=== PATIENT | female | born 1980 | race Caucasian/White ===

== ENCOUNTER 2018-02-16 11:28 | Emergency (ER) | payer OTHER ==
[2018-02-16] MEDS ORDERED: KETOROLAC 30 MG/ML INJ ONE (12:19)
[2018-02-16] MEDS ORDERED: NA CHLORIDE 0.9% 1,000 ML ONE (12:19)
[2018-02-16] MEDS ORDERED: ONDANSETRON 4 MG/2 ML VIAL ONE (12:19)
[2018-02-16 12:23] LABS: Absolute Lymphocytes (CBC) 1.9 K/uL (0.7-4.9); Absolute Monocytes 0.7 K/uL (0.1-1.3); Absolute Neutrophil 4.6 K/uL (1.8-8.0); Basophils % 0.4 % (0-1.3); Eosinophils % 0.8 % (0-4.4); Hematocrit 37.8 % (36.0-45.0); Lymphocytes % 25.6 % (15.3-44.8); MCH 31.8 pg (27.0-35.0); MCV 90.2 fL (80-100); MPV 9.6 fL (7.6-11.3); Monocytes % 9.5 % (3.3-12.3); RBC Red Blood Cell Count 4.19 M/uL (3.86-4.86)
[2018-02-16 12:47] LABS: Urine Blood NEGATIVE (NEG); Urine Glucose NEGATIVE (NEG); Urine Protein NEGATIVE (NEG); Urine Specific Gravity 1.025 (1.005-1.030)
[2018-02-16 12:49] LABS: Urine RBC <5 /HPF (NONE SEEN)
[2018-02-16 12:50] LABS: Urine Amorphous Sediment 1+ /HPF (NONE SEEN); Urine Bacteria <20 /HPF (<20); Urine Culture Reflex Order NOT NEEDED; Urine Mucus 2+ /HPF (NONE SEEN)
[2018-02-16 12:52] LABS: ALT/SGPT 26 U/L (12-78); AST/SGOT 18 U/L (15-37); Albumin 3.7 g/dL (3.4-5.0); Alkaline Phosphatase 60 U/L (45-117); BUN Blood Urea Nitrogen 10 mg/dL (7-18); Bicarbonate 29 mmol/L (21-32); Bilirubin Direct < 0.1 mg/dL (0-0.2); Bilirubin Total 0.2 mg/dL (0.2-1.0); Glucose Level 93 mg/dL (74-106); Lipase 250 U/L (73-393); Potassium 3.8 mmol/L (3.5-5.1); Protein, Total 7.7 g/dL (6.4-8.2); Sodium Level 140 mmol/L (136-145)
--- NOTE | 2018-02-16 13:46 | RAD REPORT ---
EXAM DESCRIPTION: CT - Abdomen Pelvis W Contrast - 02/16/2018 1:07 pm COMPARISON: None. TECHNIQUE: Biphasic, helical CT imaging of the abdomen and pelvis was performed following 100 ml non -ionic IV contrast. Oral contrast was given. All CT scans are performed using dose optimization technique as appropriate and may include automated exposure control or mA/KV adjustment according to patient size. FINDINGS: No suspicious findings in the lung bases. No cardiomegaly or pericardial effusion. The liver, spleen, and pancreas show no suspicious findings. Gallbladder is only partially filled. Th ere are 2 large gallstones present occupying much of the gallbladder lumen. These are 2 centimeter in size. Additional smaller gallstones or sludge could be present and occult. No biliary tree dilatatio n. Symmetric renal function is seen with no hydronephrosis or suspicious renal mass. No pyelonephritis o r acute renal parenchymal process. Urinary bladder shows no suspicious finding. Normal size uterus shows no suspicious finding. Dilated veins are seen adjacent to the uterus. No thr ombosis. No gonadal vein abnormality. Hyperdense device near the left side of the uterus is probably a tubal occlusive device. There is a 2.2 centimeter right ovarian cyst. No fallopian tube dilatation. Distended but nondilated fluid-filled stomach noted. No gastric wall thickening or mass. No dilated s mall bowel loops. Patient does have quite a few small mesenteric lymph nodes present. The appendix is identified and normal. An acute colon process is not seen. No free air or pneumatosis. No focal inflammatory stranding seen. Small quantity of free fluid in t he cul-de-sac is within physiologic limits. No hernia, mass or bulky lymphadenopathy. No adrenal abn ormality. No suspicious bony findings. IMPRESSION: No obstruction, free air or surgically emergent finding. Multi stone cholelithiasis. No biliary tree or other acute finding seen. Check Small mesenteric lymph nodes. No appendicitis, dilated bowel loop or acute GI process seen. Nonspecif ic enteritis is still possible.
--- NOTE | 2018-02-16 14:09 | ER ---
Nurse's Notes [facility] Name: Marie Marques Age: 37 yrs Sex: Female : 1980 Arrival Date: 02/16/2018 Time: 11:37 Bed 13 Private MD: Micky Roman E Diagnosis: Other abdominal pain;Cholelithiasis;Nonspecific mesenteric lymphadenitis Presentation: 02/16 11:46 Presenting complaint: Patient states: upper abd pain X 2 days, diarrhea and cramping, iw vomited X 2 yesterday. Transition of care: patient was not received from another setting of care. Onset of symptoms was February 14, 2018. Risk Assessment: Do you want to hurt yourself or someone else? Patient reports no desire to harm self or others. Initial Sepsis Screen: Does the patient meet any 2 criteria? No. Patient's initial sepsis screen is negative. Does the patient have a suspected source of infection? No. Patient's initial sepsis screen is negative. Care prior to arrival: None. 11:46 Method Of Arrival: Ambulatory iw 11:46 Acuity: NIKOS 3 iw Triage Assessment: 11:50 General: Appears in no apparent distress. comfortable, Behavior is cooperative, hj appropriate for age, crying. Pain: Complains of pain in abdomen. EENT: No signs and/or symptoms were reported regarding the EENT system. Neuro: Level of Consciousness is awake, alert, obeys commands, Oriented to person, place, time, situation, Appropriate for age. Cardiovascular: Capillary refill < 3 seconds Patient's skin is warm and dry. Respiratory: Airway is patent Trachea Respiratory effort is even, unlabored, Respiratory pattern is regular, symmetrical. GI: Reports upper abdominal pain, cramping, diarrhea, nausea, vomiting. : No signs and/or symptoms were reported regarding the genitourinary system. Derm: No signs and/or symptoms reported regarding the dermatologic system. Musculoskeletal: No signs and/or symptoms reported regarding the musculoskeletal system. 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 - Social history:: Smoking status: Patient uses tobacco products, denies chronic smoking, but will smoke occasionally. - Ebola Screening: : Patient negative for fever greater than or equal to 101.5 degrees Fahrenheit, and additional compatible Ebola Virus Disease symptoms Patient denies exposure to infectious person Patient denies travel to an Ebola-affected area in the 21 days before illness onset No symptoms or risks identified at this time. Screenin:50 Abuse screen: Denies threats or abuse. Denies injuries from another. Nutritional hj screening: No deficits noted. Tuberculosis screening: No symptoms or risk factors identified. Fall Risk None identified. Assessment: 11:51 GI: Bowel sounds present X 4 quads. Abd is soft Abdomen is tender to palpation. hj Vital Signs: 11:49 BP 129 / 105; Pulse 87; Resp 16; Temp 97.8; Pulse Ox 97% on R/A; Weight 65.77 kg; iw Height 5 ft. 1 in. (154.94 cm); Pain 6/10; 13:58 BP 113 / 72; Pulse 82; Resp 17; Temp 98; Pulse Ox 98% on R/A; cc3 11:49 Body Mass Index 27.40 (65.77 kg, 154.94 cm) iw ED Course: 11:37 Patient arrived in ED. jb7 11:37 Micky Roman MD is Private Physician. jb7 11:47 Darrell Rashid MD is Attending Physician. ps1 11:48 Triage completed. iw 11:49 Wilmer Saba, RN is Primary Nurse. hj 11:49 Arm band placed on. iw 11:51 Patient has correct armband on for positive identification. Placed in gown. Bed in low hj position. Call light in reach. Side rails up X 1. Adult w/ patient. 12:21 Initial lab(s) drawn, by tx, sent to lab. Urine collected: clean catch specimen. hj Inserted saline lock: 22 gauge in left antecubital area, using aseptic technique. Blood collected. 13:[address] via wheelchair. vr 13:04 CT completed. Patient tolerated procedure well. Patient moved back from CT. vr 13:07 CT Abd/Pelvis - W/Contrast In Process Unspecified. EDMS 14:08 Micky Roman MD is Referral Physician. ps1 14:08 Wilmer Mascorro MD is Referral Physician. ps1 14:12 Urine --Ancillary (enter results) Sent. cc3 14:12 Urine Dipstick--Ancillary (enter results) Sent. cc3 14:27 IV discontinued, intact, bleeding controlled, No redness/swelling at site. Pressure cc3 dressing applied. 14:28 No provider procedures requiring assistance completed. cc3 Administered Medications: 12:10 Drug: NS 0.9% 1000 ml Route: IV; Rate: 1 bolus; Site: left antecubital; hj 14:14 Follow up: IV Status: Completed infusion; IV Intake: 1000ml cc3 12:10 Drug: TORadol 30 mg Route: IVP; Site: left antecubital; hj 14:13 Follow up: Response: Pain is decreased cc3 12:10 Drug: Zofran 4 mg Route: IVP; Site: left antecubital; hj 14:12 Follow up: Response: No adverse reaction cc3 Intake: 14:14 IV: 1000ml; Total: 1000ml. cc3 Outcome: 14:08 Discharge ordered by . ps1 14:29 Discharged to home with family. cc3 14:29 Discharged to home ambulatory, with family. 14:29 Condition: stable 14:29 Discharge instructions given to patient, family, Instructed on discharge instructions, follow up and referral plans. Demonstrated understanding of instructions, follow-up care. 14:30 Patient left the ED. cc3 Signatures: Dispatcher [employer] Christina Flores, RN Mel Ayala Henry, RN RN hj Bryant, Jason jb7 Singer, Phillip, MD MD ps1 Cordel, Charlene cc3
--- NOTE | 2018-02-16 14:09 | EDPHYS ---
Physician Documentation [facility] Name: Marie Marques Age: 37 yrs Sex: Female : 1980 Arrival Date: 02/16/2018 Time: 11:37 Bed 13 Private MD: Micky Roman E ED Physician Darrell Rashid HPI: 02/16 14:10 This 37 yrs old Female presents to ER via Ambulatory with complaints of ps1 Abdominal Pain. 14:10 patient states that she has generalized abdominal pain that is localized to the ps1 epigastrum and radiates towards the suprapubic area. She finds that her pain fluctuates in response to food. She additionally has a history of lupus and was on plaquinil but stopped 2/2 financial barriers. 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 Pain is rated as moderate. No remitting factors. . 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 - Social history:: Smoking status: Patient uses tobacco products, denies chronic smoking, but will smoke occasionally. - Ebola Screening: : Patient negative for fever greater than or equal to 101.5 degrees Fahrenheit, and additional compatible Ebola Virus Disease symptoms Patient denies exposure to infectious person Patient denies travel to an Ebola-affected area in the 21 days before illness onset No symptoms or risks identified at this time. ROS: 14:10 Constitutional: Negative for fever, chills, and weight loss, Eyes: Negative for injury, ps1 pain, redness, and discharge, ENT: Negative for injury, pain, and discharge, Cardiovascular: Negative for chest pain, palpitations, and edema, Respiratory: Negative for shortness of breath, cough, wheezing, and pleuritic chest pain, MS/Extremity: Negative for injury and deformity, Skin: Negative for injury, rash, and discoloration, Neuro: Negative for headache, weakness, numbness, tingling, and seizure. 14:10 Abdomen/GI: Positive for abdominal pain. Exam: 14:10 Constitutional: This is a well developed, well nourished patient who is awake, alert, ps1 and in no acute distress. Head/Face: Normocephalic, atraumatic. Eyes: Pupils equal round and reactive to light, extra-ocular motions intact. Lids and lashes normal. Conjunctiva and sclera are non-icteric and not injected. Chest/axilla: Normal chest wall appearance and motion. Nontender with no deformity. No lesions are appreciated. Cardiovascular: Regular rate and rhythm. No gallops, murmurs, or rubs. Normal PMI, no JVD. No pulse deficits. Respiratory: Lungs have equal breath sounds bilaterally, clear to auscultation and percussion. No rales, rhonchi or wheezes noted. No increased work of breathing, no retractions or nasal flaring. 14:10 Abdomen/GI: Inspection: abdomen appears normal, Bowel sounds: normal, Palpation: mild abdominal tenderness, Indicators: Pierre's sign is negative. Vital Signs: 11:49 BP 129 / 105; Pulse 87; Resp 16; Temp 97.8; Pulse Ox 97% on R/A; Weight 65.77 kg; iw Height 5 ft. 1 in. (154.94 cm); Pain 6/10; 13:58 BP 113 / 72; Pulse 82; Resp 17; Temp 98; Pulse Ox 98% on R/A; cc3 11:49 Body Mass Index 27.40 (65.77 kg, 154.94 cm) iw MDM: 12:00 Patient medically screened. ps1 14:10 Data reviewed: vital signs, nurses notes, lab test result(s), radiologic studies, and ps1 as a result, I will discharge patient. Counseling: I had a detailed discussion with the patient and/or guardian regarding: the historical points, exam findings, and any diagnostic results supporting the discharge/admit diagnosis, lab results, radiology results, the need for outpatient follow up, for definitive care, a general surgeon. Special discussion: Based on the patient's Hx, exam, and Dx evaluation, there is no indication for emergent surgery or inpatient Tx. It is understood by the patient/guardian that if the Sx's persist or worsen they need to return immediately for re-evaluation. 02/16 12:00 Order name: CBC with Diff; Complete Time: 12:29 ps1 02/16 12:00 Order name: Creatinine for Radiology; Complete Time: 12:55 ps1 02/16 12:00 Order name: Hepatic Function; Complete Time: 12:55 ps1 02/16 12:00 Order name: Lipase; Complete Time: 12:55 ps1 02/16 12:00 Order name: Urine Microscopic Only; Complete Time: 12:55 ps1 02/16 12:00 Order name: CMP; Complete Time: 12:55 ps1 02/16 12:00 Order name: CT Abd/Pelvis - W/Contrast; Complete Time: 13:47 ps1 02/16 12:00 Order name: Lactate; Complete Time: 12:37 ps1 02/16 12:38 Order name: Urine Dipstick--Ancillary (enter results) bd 02/16 12:38 Order name: Urine --Ancillary (enter results) bd 02/16 12:39 Order name: Urine Dipstick-Ancillary; Complete Time: 12:47 EDMS 02/16 12:39 Order name: Urine --Ancillary; Complete Time: 12:47 EDMS 02/16 12:00 Order name: Urine Test (obtain specimen); Complete Time: 12:20 ps1 02/16 12:00 Order name: IV Saline Lock; Complete Time: 12:20 ps1 02/16 12:00 Order name: Labs collected and sent; Complete Time: 12:20 ps1 02/16 12:00 Order name: Urine Dipstick-Ancillary (obtain specimen); Complete Time: 12:21 ps1 Administered Medications: 12:10 Drug: NS 0.9% 1000 ml Route: IV; Rate: 1 bolus; Site: left antecubital; hj 14:14 Follow up: IV Status: Completed infusion; IV Intake: 1000ml cc3 12:10 Drug: TORadol 30 mg Route: IVP; Site: left antecubital; hj 14:13 Follow up: Response: Pain is decreased cc3 12:10 Drug: Zofran 4 mg Route: IVP; Site: left antecubital; hj 14:12 Follow up: Response: No adverse reaction cc3 Disposition: 02/16/18 14:08 Discharged to Home. Impression: Other abdominal pain, Cholelithiasis, Nonspecific mesenteric lymphadenitis. - Condition is Stable. - Discharge Instructions: Mesenteric Adenitis, Pediatric, Cholelithiasis. - Medication Reconciliation Form, Thank You Letter, Antibiotic Education, Prescription Opioid Use form. - Follow up: Micky Roman MD; When: As needed; Reason: Re-evaluation by your physician. Follow up: Wilmer Mascorro MD; When: As needed; Reason: Further diagnostic work-up, Recheck today's complaints, Re-evaluation by your physician. - Problem is new. - Symptoms have improved. Signatures: Dispatcher [employer] Christina Flores, ALEX RN iw Wilmer Saba RN RN hj Darrell Rashid MD MD ps1 Bucky, Cindy cc3 Corrections: (The following items were deleted from the chart) 14:30 14:08 02/16/2018 14:08 Discharged to Home. Impression: Other abdominal pain; cc3 Cholelithiasis; Nonspecific mesenteric lymphadenitis. Condition is Stable. Forms are Medication Reconciliation Form, Thank You Letter, Antibiotic Education, Prescription Opioid Use. Follow up: Micky Roman; When: As needed; Reason: Re-evaluation by your physician. Follow up: Wilmer Mascorro; When: As needed; Reason: Further diagnostic work-up, Recheck today's complaints, Re-evaluation by your physician. Problem is new. Symptoms have improved. ps1
== END 2018-02-16 14:30 | disposition home or self-care (01) ==
LOC: ER 11:28
DX: K80.20 Calculus of gallbladder without cholecystitis without obstruction (principal); I88.0 Nonspecific mesenteric lymphadenitis; F17.210 Nicotine dependence, cigarettes, uncomplicated; Z88.5 Allergy status to narcotic agent
CPT/HCPCS: 36415; 74177; 80053; 80076; 81003; 81015; 81025; 83605; 83690; 85025; 96361; 96374; 96375; 99284; J2405; J7030; Q9967